=== PATIENT | female | born 1965 | race Caucasian/White ===

== ENCOUNTER 2017-12-09 20:47 | Emergency (ER) | payer OTHER ==
[~2017-12-09] VITALS: Ht 172.7 cm; Wt 81.6 kg
[~2017-12-09 20:47] MED LIST: DIAZ10TA; METH40TA
--- NOTE | 2017-12-09 21:00 | NUR ---
PT AMBULATORY TO ER BED 13. BIB SELF C/O R BREAST PAIN AND RASH X 1 DAY. PT PLACED IN GOWN AND ON HOSE TURNER. VSS/RESP EVEN UNLABORED/NAD NOTED/SKIN WARM AND DRY/DENIES N-V-D/AFEBRILE/AOX4. AWAITING MD SHAW.
[2017-12-09] MEDS ORDERED: PIPERACILLIN /TAZOBACTAM 3.375 G VIAL IV ONE (21:26)
[2017-12-09] MEDS ORDERED: PIPERACILLIN /TAZOBACTAM 3.375 G in IV D5W 50 ML IV ONE (21:30)
[2017-12-09] MEDS ORDERED: IV NS 0.9% 1,000 ML BAG IV ONE (21:30)
[2017-12-09 21:34] LABS: BASOPHILS % (AUTO) 0.3 % (0.0-2.0); EOSINOPHILS % (AUTO) 2.9 % (0.0-6.0); HEMATOCRIT 38 % (33-45); LYMPHOCYTES % (AUTO) 21.6 % (20.0-44.0); MEAN CORPUSCULAR HGB CONC 34 g/dl (31.0-36.0); MEAN CORPUSCULAR VOLUME 93 fL (82-100); MONOCYTES # (AUTO) 0.5 /CMM (0.1-1.30); MONOCYTES % (AUTO) 10.5 % (2.0-12.0); NEUTROPHILS % (AUTO) 64.7 % (43.0-81.0); PLATELET COUNT (AUTO) 224 /CMM (150-450); RDW COEFFICIENT OF VARIATION 11.4 (11.5-15.0); RED BLOOD CELL COUNT(AUTO) 4.12 MIL/uL (4.0-5.2); WHITE BLOOD COUNT (AUTO) 4.6 K/uL (4.3-11.0)
--- NOTE | 2017-12-09 21:35 | NUR ---
LAB AT BEDSIDE TO DRAW.
--- NOTE | 2017-12-09 21:45 | NUR ---
20G IV TO L AC X 1 ATTEMPT USING ASEPTIC TECH. IV FLUSHES EASILY WITH NS, NO S/S INFILTRATION NOTED AT THIS TIME.
[2017-12-09 21:46] LABS: CALCIUM, SERUM 8.9 mg/dL (8.5-10.1); CARBON DIOXIDE 32 mmol/L (21-32); CHLORIDE 101 mmol/L (98-107); CREATININE 0.9 mg/dL (0.6-1.3); GLUCOSE 102 mg/dL (74-106); POTASSIUM 3.8 mmol/L (3.5-5.1); SODIUM SERUM 136 mmol/L (136-145); UREA NITROGEN, BLOOD 22 mg/dL (7-18)
[2017-12-09 21:49] LABS: INR 0.89 (0.85-1.15)
--- NOTE | 2017-12-09 21:50 | NUR ---
ULTRASOUND AT BEDSIDE.
[2017-12-09 21:52] LABS: ALANINE AMINOTRANSFERASE 33 U/L (12-78); ALBUMIN 3.8 g/dL (3.4-5.0); ALKALINE PHOSPHATASE 90 U/L (46-116); ASPARTATE AMINOTRANSFERASE 28 U/L (15-37); BILIRUBIN,DIRECT 0.1 mg/dL (0.0-0.2); BILIRUBIN,TOTAL 0.2 mg/dL (0.2-1.0); TOTAL PROTEIN, SERUM 8.1 g/dL (6.4-8.2)
[2017-12-09 21:53] LABS: TROPONIN I < 0.017 ng/mL (0.00-0.056)
[2017-12-09 22:39] VITALS: BP 129/82
--- NOTE | 2017-12-09 22:39 | NUR ---
IV removed. Catheter intact and site benign. Pressure and 4x4 applied to site. No bleeding noted. Patient discharged to home in stable condition. Written and verbal after care instructions given. Patient verbalizes understanding of instruction. Patient ambulatory with a steady gait.
== END 2017-12-09 22:40 | disposition home or self-care (01) ==
LOC: ER 20:49
DX: N61.0 Mastitis without abscess (principal); G89.29 Other chronic pain
CPT/HCPCS: 36415; 71045; 76642; 80048; 80076; 83605; 84484; 85025; 85730; 87040 ×2; 96365; 99285; A4606; J2543 ×2; J7030; J7060; Z7610

== ENCOUNTER 2017-12-15 11:55 | Emergency (ER) | payer OTHER ==
[~2017-12-15] VITALS: Ht 172.7 cm; Wt 86.2 kg
--- NOTE | 2017-12-15 12:05 | NUR ---
PATIENT TO ED DT NAUSEA, VOMITING, DIARRHEA,, PATIENT ON ORAL ATB. PATIENT IS AAO4. IN NO DISTRESS. RESPIRATION EVEN AND UNLABORED. SKIN IS WARM TO TOUCH AND NON DIAPHORETIC. PATIENT IS AFEBRILE. VSS
[2017-12-15] MEDS ORDERED: ONDANSETRON HCL/PF 4 MG/2 ML VIAL ONE (12:24)
[2017-12-15] MEDS ORDERED: ONDANSETRON HCL/PF 4 MG/2 ML VIAL IVP ONE (12:30)
[2017-12-15] MEDS ORDERED: IV NS 0.9% 1,000 ML BAG IV ONE (12:30)
[2017-12-15 12:33] LABS: BASOPHILS % (AUTO) 0.6 % (0.0-2.0); EOSINOPHILS % (AUTO) 0.4 % (0.0-6.0); HEMATOCRIT 39 % (33-45); HEMOGLOBIN 13.4 g/dL (11.5-14.8); LYMPHOCYTES # (AUTO) 0.9 /CMM (0.8-4.8); LYMPHOCYTES % (AUTO) 11.6 % (20.0-44.0); MEAN CORPUSCULAR HGB CONC 35 g/dl (31.0-36.0); MEAN CORPUSCULAR VOLUME 92 fL (82-100); MONOCYTES # (AUTO) 0.2 /CMM (0.1-1.30); MONOCYTES % (AUTO) 3.3 % (2.0-12.0); NEUTROPHILS # (AUTO) 6.4 /CMM (1.8-8.9); NEUTROPHILS % (AUTO) 84.1 % (43.0-81.0); PLATELET COUNT (AUTO) 254 /CMM (150-450); RDW COEFFICIENT OF VARIATION 11.4 (11.5-15.0); RED BLOOD CELL COUNT(AUTO) 4.24 MIL/uL (4.0-5.2); WHITE BLOOD COUNT (AUTO) 7.5 K/uL (4.3-11.0)
[2017-12-15 12:50] LABS: BILIRUBIN,DIRECT 0.1 mg/dL (0.0-0.2); BILIRUBIN,TOTAL 0.1 mg/dL (0.2-1.0); CALCIUM, SERUM 8.7 mg/dL (8.5-10.1); CREATININE 0.8 mg/dL (0.6-1.3); POTASSIUM 3.6 mmol/L (3.5-5.1); TOTAL PROTEIN, SERUM 7.9 g/dL (6.4-8.2)
[2017-12-15 13:20] VITALS: BP 148/80
== END 2017-12-15 13:24 | disposition home or self-care (01) ==
LOC: ER 11:57
DX: K30 Functional dyspepsia (principal); K90.49 Malabsorption due to intolerance, not elsewhere classified; T36.95XA Adverse effect of unspecified systemic antibiotic, initial encounter; Z60.2 Problems related to living alone; Z85.3 Personal history of malignant neoplasm of breast; Y92.89 Other specified places as the place of occurrence of the external cause
CPT/HCPCS: 36415; 80048; 80076; 83690; 85025; 96361; 96374; 99284; A4606; J2405; J7030; Z7610

== ENCOUNTER 2021-10-08 14:45 | Emergency (ER) | payer OTHER ==
[~2021-10-08] VITALS: Ht 167.6 cm; Wt 77.1 kg
--- NOTE | 2021-10-08 15:09 | NUR ---
PT C/O ANXIETY ATTACK. PT STS THAT SHE RECENTLY STARTED TAKING SEROQUEL. DENIES CP, SOB, DIZZINESS, N/V AT THIS TIME. AWAITING EVAL BY ERMD/PACU RN/PA. WILL CONT TO MONITOR.
--- NOTE | 2021-10-08 16:25 | NUR ---
DR RUBIO AT BEDSIDE
[2021-10-08] MEDS ORDERED: LORAZEPAM 1 MG TABLET PO ONE (16:30)
[2021-10-08] MEDS ORDERED: MORPHINE SULFATE INJ 2 MG/ML DISP.SYRIN IV ONE (17:00)
[2021-10-08 17:05] LABS: BILIRUBIN,URINE NEGATIVE (NEGATIVE); COLOR,URINE YELLOW (YELLOW); LEUKOCYTE ESTERASE ,URINE TRACE (NEGATIVE); NITRITE, URINE NEGATIVE (NEGATIVE); PROTEIN,URINE NEGATIVE (NEGATIVE); UGLUCOSE NEGATIVE (NEGATIVE); UROBILINOGEN,URINE 0.2 EU/dL (0.2)
[2021-10-08 17:14] LABS: BASOPHILS % (AUTO) 0.6 % (0.0-2.0); EOSINOPHILS % (AUTO) 0.1 % (0.0-6.0); HEMATOCRIT 41 % (33-45); HEMOGLOBIN 13.4 g/dL (11.5-14.8); LYMPHOCYTES # (AUTO) 1.2 K/uL (0.8-4.8); LYMPHOCYTES % (AUTO) 13.6 % (20.0-44.0); MEAN CORPUSCULAR HGB CONC 33 g/dl (31.0-36.0); MEAN CORPUSCULAR VOLUME 94 fL (82-100); MONOCYTES # (AUTO) 0.4 K/uL (0.1-1.30); MONOCYTES % (AUTO) 5.1 % (2.0-12.0); NEUTROPHILS % (AUTO) 80.6 % (43.0-81.0); PLATELET COUNT (AUTO) 276 K/uL (150-450); RED BLOOD CELL COUNT(AUTO) 4.39 MIL/uL (4.0-5.2); WHITE BLOOD COUNT (AUTO) 8.7 K/uL (4.3-11.0)
[2021-10-08 17:21] LABS: BACTERIA,URINE None seen /HPF (None Seen); RBC,URINE 0-2 /HPF (0-2)
[2021-10-08 17:45] LABS: ALANINE AMINOTRANSFERASE 28 U/L (12-78); ALBUMIN 3.9 g/dL (3.4-5.0); ALCOHOL, BLOOD < 3 mg/dL (0-0); ALKALINE PHOSPHATASE 85 U/L (46-116); ASPARTATE AMINOTRANSFERASE 16 U/L (15-37); BILIRUBIN,DIRECT 0.1 mg/dL (0.0-0.2); BILIRUBIN,TOTAL 0.3 mg/dL (0.2-1.0); CARBON DIOXIDE 28 mmol/L (21-32); CHLORIDE 103 mmol/L (98-107); CREATININE 0.8 mg/dL (0.6-1.3); GLUCOSE 123 mg/dL (74-106); POTASSIUM 3.9 mmol/L (3.5-5.1); SODIUM SERUM 138 mmol/L (136-145); TOTAL PROTEIN, SERUM 7.6 g/dL (6.4-8.2); UREA NITROGEN, BLOOD 11 mg/dL (7-18)
[2021-10-08] MEDS ORDERED: LORAZEPAM 1 MG TABLET ONE (18:15)
[2021-10-08] MEDS ORDERED: MORPHINE SULFATE INJ 4 MG/ML DISP.SYRIN ONE (18:15)
--- NOTE | 2021-10-08 18:18 | NUR ---
MEDICATED PER ERMD ORDER, PT JHONNY WELL.
[2021-10-08 20:00] VITALS: BP 126/79
--- NOTE | 2021-10-08 21:06 | NUR ---
Patient discharged to home in stable condition. Written and verbal after care instructions given. Patient verbalizes understanding of instruction.IV removed. Catheter intact and site benign. Pressure and 4x4 applied to site. No bleeding noted. Pt ambulatory with a steady gait
== END 2021-10-08 21:10 | disposition home or self-care (01) ==
LOC: ER 14:51
DX: S09.90XS Unspecified injury of head, sequela (principal); F41.9 Anxiety disorder, unspecified; Z60.2 Problems related to living alone; Z79.899 Other long term (current) drug therapy; W18.30XS Fall on same level, unspecified, sequela
CPT/HCPCS: 36415; 70450; 80048; 80076; 80143; 80307; 80320; 81001; 85025; 96374; 99284; J2270; G0480

== ENCOUNTER 2021-10-14 16:25 | Emergency (ER) | payer OTHER ==
[~2021-10-14] VITALS: Ht 172.7 cm; Wt 90.7 kg
--- NOTE | 2021-10-14 16:39 | NUR ---
BIBS C/O UPPER ABDOMINAL DISCOMFORT X 3 MONTHS. WORST TODAY. 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 ALSO C/P SOB. CONCERN BECAUSE "I VAPE." VITALS ARE WITHIN NORMAL LIMITS. BREATHING IS EVEN AND UNLABORED ON ROOM AIR. DR LITTLEJOHN AT BEDSIDE.
--- NOTE | 2021-10-14 16:43 | NUR ---
URINE COLLECTED AND SENT
--- NOTE | 2021-10-14 16:46 | NUR ---
IV ESTABLIHSED R AC 20G. BLOOD DRAWN AND SENT. CONVERTED TO SALINE LOCK.
[2021-10-14] MEDS ORDERED: FAMOTIDINE/PF INJ 20 MG/2 ML VIAL IV ONE ×2 (16:55→17:00)
[2021-10-14] MEDS ORDERED: MAG HYDROX/AL HYDROX/SIMETH 30 ML UDC ONE (16:55)
[2021-10-14] MEDS ORDERED: MAG HYDROX/AL HYDROX/SIMETH 30 ML UDC PO ONE (17:00)
--- NOTE | 2021-10-14 17:02 | NUR ---
ULTRASOUND AT BEDSIDE
[2021-10-14 17:23] LABS: BASOPHILS % (AUTO) 0.6 % (0.0-2.0); EOSINOPHILS % (AUTO) 1.1 % (0.0-6.0); HEMATOCRIT 43 % (33-45); HEMOGLOBIN 14.2 g/dL (11.5-14.8); LYMPHOCYTES # (AUTO) 1.2 K/uL (0.8-4.8); LYMPHOCYTES % (AUTO) 16.5 % (20.0-44.0); MEAN CORPUSCULAR HGB CONC 33 g/dl (31.0-36.0); MEAN CORPUSCULAR VOLUME 93 fL (82-100); MONOCYTES # (AUTO) 0.4 K/uL (0.1-1.30); MONOCYTES % (AUTO) 5.7 % (2.0-12.0); NEUTROPHILS # (AUTO) 5.6 K/uL (1.8-8.9); NEUTROPHILS % (AUTO) 76.1 % (43.0-81.0); PLATELET COUNT (AUTO) 310 K/uL (150-450); WHITE BLOOD COUNT (AUTO) 7.4 K/uL (4.3-11.0)
[2021-10-14 17:36] LABS: BILIRUBIN,URINE NEGATIVE (NEGATIVE); COLOR,URINE YELLOW (YELLOW); LEUKOCYTE ESTERASE ,URINE NEGATIVE (NEGATIVE); NITRITE, URINE NEGATIVE (NEGATIVE); PROTEIN,URINE NEGATIVE (NEGATIVE); UGLUCOSE NEGATIVE (NEGATIVE); UROBILINOGEN,URINE 0.2 EU/dL (0.2)
[2021-10-14 17:45] LABS: ALANINE AMINOTRANSFERASE 29 U/L (12-78); ALBUMIN 3.9 g/dL (3.4-5.0); ALKALINE PHOSPHATASE 86 U/L (46-116); ASPARTATE AMINOTRANSFERASE 13 U/L (15-37); BILIRUBIN,TOTAL 0.2 mg/dL (0.2-1.0); CARBON DIOXIDE 29 mmol/L (21-32); CHLORIDE 104 mmol/L (98-107); CREATININE 0.9 mg/dL (0.6-1.3); GLUCOSE 117 mg/dL (74-106); LIPASE 157 U/L (73-393); POTASSIUM 3.5 mmol/L (3.5-5.1); SODIUM SERUM 141 mmol/L (136-145); TOTAL PROTEIN, SERUM 7.5 g/dL (6.4-8.2); UREA NITROGEN, BLOOD 13 mg/dL (7-18)
[2021-10-14 17:57] LABS: CALCIUM, SERUM 9.2 mg/dL (8.5-10.1)
[2021-10-14] MEDS ORDERED: ONDA4TAB5 PO (19:27)
[2021-10-14 19:52] VITALS: BP 128/74
--- NOTE | 2021-10-14 19:52 | NUR ---
Patient discharged to home in stable condition. Written and verbal after care instructions given. Patient verbalizes understanding of instruction. PT ambulatory with a steady gait. IV removed. Catheter intact and site benign. Pressure and 4x4 applied to site. No bleeding noted.
== END 2021-10-14 19:52 | disposition home or self-care (01) ==
LOC: ER 16:28
DX: R10.11 Right upper quadrant pain (principal); F41.9 Anxiety disorder, unspecified; Z60.2 Problems related to living alone; Z79.899 Other long term (current) drug therapy
CPT/HCPCS: 36415; 74176; 76705; 80048; 80076; 81003; 83690; 84484 ×2; 85025; 87086; 93005; 96374; 99285; J3490

== ENCOUNTER 2022-02-14 13:48 | Emergency (ER) | payer OTHER ==
[~2022-02-14] VITALS: Ht 167.6 cm; Wt 77.1 kg
[~2022-02-14 13:48] MED LIST changes: +ONDA4TAB5 PO
[2022-02-14 14:02] VITALS: BP 147/68
--- NOTE | 2022-02-14 14:05 | NUR ---
DR PHILLIP W/ PT FOR EVAL
--- NOTE | 2022-02-14 14:14 | NUR ---
URINE SAMPLE SENT TO LAB
[2022-02-14 14:41] LABS: BILIRUBIN,URINE NEGATIVE (NEGATIVE); COLOR,URINE YELLOW (YELLOW); LEUKOCYTE ESTERASE ,URINE NEGATIVE (NEGATIVE); NITRITE, URINE NEGATIVE (NEGATIVE); PROTEIN,URINE NEGATIVE (NEGATIVE); UGLUCOSE NEGATIVE (NEGATIVE); UROBILINOGEN,URINE 0.2 EU/dL (0.2)
[2022-02-14] MEDS ORDERED: CEPH250C PO (15:07)
--- NOTE | 2022-02-14 15:09 | NUR ---
Patient discharged to home in stable condition. Written and verbal after care instructions given. Patient verbalizes understanding of instruction.
== END 2022-02-14 15:10 | disposition home or self-care (01) ==
LOC: ER 13:55
DX: L73.9 Follicular disorder, unspecified (principal); F41.9 Anxiety disorder, unspecified; Z60.2 Problems related to living alone; Z79.899 Other long term (current) drug therapy